=== PATIENT | female | born 1965 | race American Indian/Alaskan Native ===

== ENCOUNTER 2019-10-28 02:48 | Observation (INO) | payer OTHER ==
--- NOTE | 2019-10-28 03:26 | Cat Scan Report ---
Examination: CT of the head without contrast Clinical information: Stroke symptoms Comparison: No prior study is available for comparison. Technical: Multiple axial CT images of the head were obtained without intravenous contrast. Sagittal and coronal reformats were obtained. All CTs at this facility utilize dose reduction techniques inc luding automated exposure control, iterative reconstruction and weight based dosing when appropriate to reduce patient radiation dose to as low as reasonable achievable. Findings: There is no CT evidence of acute intracranial hemorrhage or large territorial infarct. The ventricular system is normal in size. There are no extra-axial fluid collections. Evaluation of the calvarium demonstrates no evidence of acute bony abnormality. The visualized parana david sinuses and mastoid air cells appear grossly clear. Impression: 1. No CT evidence of acute intracranial process. If there is persistent clinical concern for stroke, then MRI of the brain is recommended. This study was designated as a code stroke protocol. Study findings were personally communicated to Janet Shannon in the Emergency Department at 2:21 AM Central time. Signer Name: Sushma Melvin MD Signed: 10/28/2019 3:21 AM Workstation Name: [email or web address]
--- NOTE | 2019-10-28 03:28 | Consultation ---
History of Present Illness History of present illness: [facility] Date of Service: 10/28/2019 02:52:10 Impression: RO Acute Ischemic Stroke Comments: 1. Cardioembolic stroke 2. Small vessel disease/lacune 3. Thromboembolic, [id number] mechanism 4. Hypercoagulable state-related infarct 5. Thrombotic mechanism, large artery disease 6. Transient ischemic attack Metrics: Last Known Well: 10/28/2019 00:00:00 [facility] Notification Time: 10/28/2019 02:51:26 Arrival Time: 10/28/2019 02:48:00 Stamp Time: 10/28/2019 02:52:10 Time First Login Attempt: 10/28/2019 02:55:27 Video Start Time: 10/28/2019 02:55:27 Symptoms: speech difficulty and left leg pain NIHSS Start Assessment Time: 10/28/2019 03:12:21 ([address]) Patient is not a candidate for tPA. Patient was not deemed candidate for tPA thrombolytics because of IV TPA declined by the patient and her daugther. Video End Time: 10/28/2019 03:25:31 CT head was reviewed. Advanced imaging was not obtained as the presentation was not suggestive of Large Vessel Occlusive Disease. ER Physician notified of the decision on thrombolytics management on 10/28/2019 03:24:00 Our recommendations are outlined below. Recommendations: Activate Stroke Protocol Admission/Order Set Stroke/Telemetry Floor Neuro Checks Bedside Swallow Eval DVT Prophylaxis IV Fluids, Normal Saline Head of Bed Below 30 Degrees Euglycemia and Avoid Hyperthermia (PRN Acetaminophen) Initiate Aspirin 81 MG Daily Recommended Scan: MRI Head Without Contrast MRA Head Without Contrast Carotid Dopplers Echocardiogram - Transthoracic Echocardiogram Lipid Panel to Be Obtained, if Not Done in the Last Three Months Therapies: Physical Therapy, Occupational Therapy, Speech Therapy Assessment When Applicable Dysphaghia Screen: Swallow Evaluation, Bedside NPO Until Swallow Evaluation Disposition: Follow up with Teleneurology Follow up Sign Out: Discussed with Emergency Department Provider History of Present Illness: Patient is a 54 year old Female. Patient was brought by private transportation with symptoms of speech difficulty and left leg pain 54 y/o right handed woman with h/o DM, HTN who presents to the ED with speech difficulty and left leg pain. Emergent telestroke consult requested. CT head reviewed and case discussed with ED staff. Patient's daughter at the bedside. Last reported well 0000 midnight. I discussed the risk, benefits and alternatives to IV TPA with the patient and daughter at the bedside. They have declined IV TPA. ED attending at bedside. Patient appears mostly concerned with her left leg pain/cramps at this time. CT head was reviewed. Examination: BP(163/78), Blood Glucose(151) 1A: Level of Consciousness - Alert; keenly responsive + 0 1B: Ask Month and Age - Both Questions Right + 0 1C: Blink Eyes & Squeeze Hands - Performs Both Tasks + 0 2: Test Horizontal Extraocular Movements - Normal + 0 3: Test Visual Alvarado - No Visual Loss + 0 4: Test Facial Palsy (Use Grimace if Obtunded) - Normal symmetry + 0 5A: Test Left Arm Motor Drift - No Drift for 10 Seconds + 0 5B: Test Right Arm Motor Drift - No Drift for 10 Seconds + 0 6A: Test Left Leg Motor Drift - No Drift for 5 Seconds + 0 6B: Test Right Leg Motor Drift - No Drift for 5 Seconds + 0 7: Test Limb Ataxia (FNF/Heel-Bethea) - No Ataxia + 0 8: Test Sensation - Normal; No sensory loss + 0 9: Test Language/Aphasia - Normal; No aphasia + 0 10: Test Dysarthria - Mild-Moderate Dysarthria: Slurring but can be understood + 1 11: Test Extinction/Inattention - No abnormality + 0 NIHSS Score: 1 Patient was informed the Neurology Consult would happen via TeleHealth consult by way of interactive audio and video telecommunications and consented to receiving care in this manner. Due to the immediate potential for life-threatening deterioration due to underlying acute neurologic illness, I spent 35 minutes providing critical care. This time includes time for face to face visit via telemedicine, review of medical records, imaging studies and discussion of findings with providers, the patient and/or family. Dr Ramiro Matthews [facility] Case [id number] Medications and Allergies Allergies Allergy/AdvReac Type Severity Reaction Status Date / Time latex Allergy Hives Verified 10/28/19 03:04 Penicillins Allergy Hives Verified 10/28/19 03:04 shellfish derived Allergy Hives Verified 10/28/19 03:04 Sulfa (Sulfonamide Allergy Hives Verified 10/28/19 03:04 Antibiotics) nuts Allergy Hives Uncoded 10/28/19 03:04 Physical Examination - Vital Signs Vital Signs: Vital Signs Temp Pulse Resp BP Pulse Ox 97.3 F L 74 18 163/78 97 10/28/19 02:54 10/28/19 02:54 10/28/19 02:54 10/28/19 02:54 10/28/19 02:54 Results - Laboratory Findings Abnormal Lab Findings: Abnormal Labs 10/28/19 03:00 POC Glucose 151 H
--- NOTE | 2019-10-28 03:30 | Emergency Department Report ---
<BURKE ULLOA - Last Filed: 10/28/19 03:48> ED Neuro Deficit HPI - General Chief Complaint: Neuro Symptoms/Deficit Stated Complaint: UNABLE TO SPEAK, LEFT LEG PAIN, MUSCLE WEAKNESS Time Seen by Provider: 10/28/19 03:03 Source: patient Mode of arrival: Ambulatory Limitations: No Limitations - History of Present Illness Initial Comments: This is a 54-year-old female brought by daughter for slurred speech and muscle weakness/pain. Patient's daughter stated that around 12 AM prior to them going to sleep, patient was normal and when patient woke up to use the restroom she started to have slurred speech and weakness to bilateral legs, worse on the left side. Patient denies any history of stroke or CVA. Daughter stated that patient has history of similar symptoms (2017) but was never diagnosed with CVA. Denies any facial drooping. Patient denies any headache, fever, chills, nausea, vomiting, chest pain, shortness of breath. Past medical history includes diabetes and hypertension. -: This morning Location: speech, other (lower leg weakness) Presenting Symptoms: Present: Unable to Speak Clearly. Absent: Weak/Paralyzed One Side, Sudden, Severe Headache, Blurred/Loss of Vision, Facial Droop/Numbness, Altered Mental Status History of same: Yes (2017) Place: home Severity: mild Quality: weak Improves With: none Worsens With: none On Anticoagulants: No Context: sudden onset Associated Symptoms: weakness. denies: confusion, chest pain, cough, diaphoresis, fever/chills, headaches, loss of appetite, malise, nausea/vomiting, vertigo, seizures, shortness of breath, syncope Treatments Prior to Arrival: none - Related Data Allergies/Adverse Reactions: Allergies Allergy/AdvReac Type Severity Reaction Status Date / Time latex Allergy Hives Verified 10/28/19 03:04 Penicillins Allergy Hives Verified 10/28/19 03:04 shellfish derived Allergy Hives Verified 10/28/19 03:04 Sulfa (Sulfonamide Allergy Hives Verified 10/28/19 03:04 Antibiotics) nuts Allergy Hives Uncoded 10/28/19 03:04 ED Review of Systems Constitutional: denies: chills, fever Eyes: denies: eye pain, eye discharge, vision change ENT: denies: ear pain, throat pain Respiratory: denies: cough, shortness of breath, wheezing Cardiovascular: denies: chest pain, palpitations Endocrine: no symptoms reported Gastrointestinal: denies: abdominal pain, nausea, diarrhea Genitourinary: denies: urgency, dysuria, discharge Musculoskeletal: denies: back pain, joint swelling, arthralgia Skin: denies: rash, lesions Neurological: weakness, other (slurred speech). denies: headache, paresthesias Psychiatric: denies: anxiety, depression Hematological/Lymphatic: denies: easy bleeding, easy bruising ED Past Medical Hx - Past Medical History Previous Medical History?: Yes Hx Hypertension: Yes Hx Diabetes: Yes Additional medical history: high cholesterol, glaucoma,sleep apnea, herpes 2, Asthma - Surgical History Past Surgical History?: Yes Additional Surgical History: hip - Social History Smoking Status: Never Smoker Substance Use Type: None ED Neuro Physical Exam - General Limitations: No Limitations General appearance: alert, in no apparent distress Suspected Stroke: Yes - Head Head exam: Present: atraumatic, normocephalic - Eye Eye exam: Present: normal appearance, PERRL, EOMI - Neck Neck exam: Present: normal inspection, full ROM. Absent: tenderness, meningismus - Respiratory Respiratory exam: Present: normal lung sounds bilaterally. Absent: respiratory distress, wheezes, rales, rhonchi, stridor, chest wall tenderness, accessory muscle use, decreased breath sounds, prolonged expiratory - Cardiovascular Cardiovascular Exam: Present: regular rate, normal rhythm - GI/Abdominal GI/Abdominal exam: Present: soft, normal bowel sounds. Absent: distended, tenderness, guarding, rebound, rigid, diminished bowel sounds - Extremities Exam Extremities exam: Present: normal inspection, full ROM, normal capillary refill. Absent: tenderness - Back Exam Back exam: Present: normal inspection, full ROM. Absent: tenderness, CVA tenderness (R), CVA tenderness (L), muscle spasm, paraspinal tenderness, vertebral tenderness, rash noted - Neurological Exam Neurological exam: Present: alert, oriented X3 - NIHSS Assessment Interval: Baseline 1a. Level of Consciousness: alert/keenly responsive 1b. LOC Questions: answers both correctly 1c. LOC Commands: performs tasks correctly 2. Best Gaze: normal 3. Visual: no visual loss 4. Facial Palsy: normal symmetrical movement 5b. Motor Arm Right: no drift 5a. Motor Arm Left: no drift 6a. Motor Leg Left: no drift 6b. Motor Leg Right: no drift 7. Limb Ataxia: absent 8. Sensory: normal 9. Best Language: mild/moderate aphasia 10. Dysarthria: normal 11. Extinction/Inattention: no abnormality Total Score: 1 Stroke Severity: Minor Stroke - Psychiatric Psychiatric exam: Present: normal affect, normal mood - Skin Skin exam: Present: warm, dry, intact, normal color. Absent: rash ED Course - Reevaluation(s) Reevaluation #1: 10/28/19 03:31 Patient signed out to Dr. Shannon for further evaluation and treatment. - Medical Decision Making This is a 54-year-old female that presents with possible stroke. Patient does not present with one-sided weakness but does have a slurred speech. Neurologist and patient both agreed with no TPA at this time. Patient is placed on a color television console monitor. Labs pending. CT of head pending. Patient signed out to Dr. Shannon for further evaluation and treatment. ED Disposition Clinical Impression: Slurred speech, HTN (hypertension), Diabetes Disposition: OP ADMIT IP TO THIS HOSP Condition: Stable <KAL SHANNON - Last Filed: 10/28/19 04:56> ED Review of Systems ROS: Stated complaint: UNABLE TO SPEAK, LEFT LEG PAIN, MUSCLE WEAKNESS Other details as noted in HPI ED Course Vital Signs 10/28/19 10/28/19 10/28/19 02:54 03:18 03:30 Temperature 97.3 F L Pulse Rate 74 74 73 Respiratory 18 13 20 Rate Blood Pressure 163/78 175/81 Blood Pressure [Right] O2 Sat by Pulse 97 99 97 Oximetry 10/28/19 10/28/19 10/28/19 03:33 03:45 04:00 Temperature 97.7 F Pulse Rate 75 67 73 Respiratory 22 13 15 Rate Blood Pressure 161/80 159/75 Blood Pressure 175/81 [Right] O2 Sat by Pulse 98 96 Oximetry 10/28/19 04:15 Temperature Pulse Rate 69 Respiratory 14 Rate Blood Pressure 134/71 Blood Pressure [Right] O2 Sat by Pulse 91 Oximetry - Lab Data Result diagrams: 10/28/19 03:34 10/28/19 03:34 Lab Results 10/28/19 10/28/19 10/28/19 Range/Units 03:00 03:34 03:34 WBC 10.6 (4.5-11.0) K/mm3 RBC 5.38 H (3.65-5.03) M/mm3 Hgb 14.0 (10.1-14.3) gm/dl Hct 43.2 H (30.3-42.9) % MCV 80 (79-97) fl MCH 26 L (28-32) pg MCHC 33 (30-34) % RDW 14.8 (13.2-15.2) % Plt Count 307 (140-440) K/mm3 Lymph % (Auto) 25.3 (13.4-35.0) % Dare % (Auto) 12.9 H (0.0-7.3) % Eos % (Auto) 1.6 (0.0-4.3) % Baso % (Auto) 0.3 (0.0-1.8) % Lymph # 2.7 (1.2-5.4) K/mm3 Dare # 1.4 H (0.0-0.8) K/mm3 Eos # 0.2 (0.0-0.4) K/mm3 Baso # 0.0 (0.0-0.1) K/mm3 Seg Neutrophils % 59.9 (40.0-70.0) % Seg Neutrophils # 6.3 (1.8-7.7) K/mm3 PT 12.8 (12.2-14.9) Sec. INR 0.97 (0.87-1.13) APTT 25.3 (24.2-36.6) Sec. Thrombin Time 18.4 (15.1-19.6) Sec. Sodium (137-145) mmol/L Potassium (3.6-5.0) mmol/L Chloride (98-107) mmol/L Carbon Dioxide (22-30) mmol/L Anion Gap mmol/L BUN (7-17) mg/dL Creatinine (0.7-1.2) mg/dL Estimated GFR ml/min BUN/Creatinine Ratio % Glucose (65-100) mg/dL POC Glucose 151 H (70-105) Calcium (8.4-10.2) mg/dL Total Bilirubin (0.1-1.2) mg/dL AST (5-40) units/L ALT (7-56) units/L Alkaline Phosphatase (35-129) units/L Total Creatine Kinase (30-135) units/L CK-MB (CK-2) (0.0-4.0) ng/mL CK-MB (CK-2) Rel Index (0-4) Troponin T (0.00-0.029) ng/mL Total Protein (6.3-8.2) g/dL Albumin (3.9-5) g/dL Albumin/Globulin Ratio % Plasma/Serum Alcohol (0-0.07) % 10/28/19 10/28/19 10/28/19 Range/Units 03:34 03:34 03:34 WBC (4.5-11.0) K/mm3 RBC (3.65-5.03) M/mm3 Hgb (10.1-14.3) gm/dl Hct (30.3-42.9) % MCV (79-97) fl MCH (28-32) pg MCHC (30-34) % RDW (13.2-15.2) % Plt Count (140-440) K/mm3 Lymph % (Auto) (13.4-35.0) % Dare % (Auto) (0.0-7.3) % Eos % (Auto) (0.0-4.3) % Baso % (Auto) (0.0-1.8) % Lymph # (1.2-5.4) K/mm3 Dare # (0.0-0.8) K/mm3 Eos # (0.0-0.4) K/mm3 Baso # (0.0-0.1) K/mm3 Seg Neutrophils % (40.0-70.0) % Seg Neutrophils # (1.8-7.7) K/mm3 PT (12.2-14.9) Sec. INR (0.87-1.13) APTT (24.2-36.6) Sec. Thrombin Time (15.1-19.6) Sec. Sodium 139 (137-145) mmol/L Potassium 3.8 (3.6-5.0) mmol/L Chloride 102.8 (98-107) mmol/L Carbon Dioxide 25 (22-30) mmol/L Anion Gap 15 mmol/L BUN 19 H (7-17) mg/dL Creatinine 0.6 L (0.7-1.2) mg/dL Estimated GFR > 60 ml/min BUN/Creatinine Ratio 32 % Glucose 150 H (65-100) mg/dL POC Glucose (70-105) Calcium 10.0 (8.4-10.2) mg/dL Total Bilirubin 0.70 (0.1-1.2) mg/dL AST 17 (5-40) units/L ALT 16 (7-56) units/L Alkaline Phosphatase 139 H (35-129) units/L Total Creatine Kinase 207 H 213 H (30-135) units/L CK-MB (CK-2) 2.6 (0.0-4.0) ng/mL CK-MB (CK-2) Rel Index 1.2 (0-4) Troponin T < 0.010 (0.00-0.029) ng/mL Total Protein 8.3 H (6.3-8.2) g/dL Albumin 4.1 (3.9-5) g/dL Albumin/Globulin Ratio 1.0 % Plasma/Serum Alcohol < 0.01 (0-0.07) % - Radiology Data Radiology results: report reviewed Examination: CT of the head without contrast Clinical information: Stroke symptoms Comparison: No prior study is available for comparison. Technical: Multiple axial CT images of the head were obtained without intravenous contrast. Sagittal and coronal reformats were obtained. All CTs at this facility utilize dose reduction techniques including automated exposure control, iterative reconstruction and weight based dosing when appropriate to reduce patient radiation dose to as low as reasonable achievable. Findings: There is no CT evidence of acute intracranial hemorrhage or large territorial infarct. The ventricular system is normal in size. There are no extra-axial fluid collections. Evaluation of the calvarium demonstrates no evidence of acute bony abnormality. The visualized paranasal sinuses and mastoid air cells appear grossly clear. Impression: 1. No CT evidence of acute intracranial process. If there is persistent clinical concern for stroke, then MRI of the brain is recommended. - Thrombolytic Inclusion/Exclusion Thrombolytic Inclusion Criteria: NIH Stroke Scale Deficit Critical Care Time: No Critical care attestation.: If time is entered above; I have spent that time in minutes in the direct care of this critically ill patient, excluding procedure time. ED Disposition Is pt being admited?: Yes Does the pt Need Aspirin: Yes Time of Disposition: 04:55 (Dr Reyes/hosp)
[2019-10-28 03:54] LABS: Basophils % (Auto) 0.3 % (0.0-1.8); Eosinophils # (Auto) 0.2 K/mm3 (0.0-0.4); Eosinophils % (Auto) 1.6 % (0.0-4.3); Hematocrit 43.2 % (30.3-42.9); Lymphocytes # (Auto) 2.7 K/mm3 (1.2-5.4); Lymphocytes % (Auto) 25.3 % (13.4-35.0); Mean Corpuscular HGB Conc 33 % (30-34); Mean Corpuscular Volume 80 fl (79-97); Monocytes # (Auto) 1.4 K/mm3 (0.0-0.8); Monocytes % (Auto) 12.9 % (0.0-7.3); Platelet Count 307 K/mm3 (140-440); Red Blood Count 5.38 M/mm3 (3.65-5.03); Red Cell Distribution Width 14.8 % (13.2-15.2)
[2019-10-28] MEDS ORDERED: ONDANSETRON 4 MG/2 ML INJ IV ONE (04:00)
[2019-10-28] MEDS ORDERED: MORPHINE 4 MG/1 ML INJ IV ONE (04:00)
[2019-10-28] MEDS ORDERED: ASPIRIN 325 MG TAB ONE (04:01)
[2019-10-28] MEDS ORDERED: ONDANSETRON 4 MG/2 ML INJ ONE (04:01)
[2019-10-28] MEDS ORDERED: MORPHINE 4 MG/1 ML INJ ONE (04:01)
[2019-10-28] MEDS ORDERED: ASPIRIN 325 MG TAB PO ONE (04:02)
[2019-10-28 04:08] LABS: INR 0.97 (0.87-1.13)
[2019-10-28 04:09] LABS: Partial Thromboplastin Time 25.3 Sec. (24.2-36.6); Thrombin Time 18.4 Sec. (15.1-19.6)
[2019-10-28 04:10] LABS: Creatine Kinase MB 2.6 ng/mL (0.0-4.0)
[2019-10-28 04:12] LABS: Alanine Aminotransferase 16 units/L (7-56); Albumin 4.1 g/dL (3.9-5); BUN/Creatinine Ratio 32; Blood Urea Nitrogen 19 mg/dL (7-17); Hemolysis Index 0
[2019-10-28 05:31] LABS: Bacteria,Urine 1+ /HPF (Negative); Bilirubin,Urine NEG (Negative); Blood,Urine NEG (Negative); Color,Urine Yellow (Yellow); Mucus,Urine 2+ /HPF; Urobilinogen,Urine < 2.0 mg/dL (<2.0)
[2019-10-28 05:38] LABS: Amphetamine Screen,Urine PRESUMPTIVE NEGATIVE; Benzodiazepines Screen,Urine PRESUMPTIVE NEGATIVE; Cannabinoid Screen,Urine PRESUMPTIVE NEGATIVE; Cocaine Screen,Urine PRESUMPTIVE NEGATIVE; Methadone Screen,Urine PRESUMPTIVE NEGATIVE
[2019-10-28] MEDS ORDERED: MAGNESIUM HYDROXIDE (MOM) ORAL LIQD UDC PO PRN (05:40)
[2019-10-28] MEDS ORDERED: ONDANSETRON 4 MG/2 ML INJ IV PRN (05:40)
[2019-10-28] MEDS ORDERED: ACETAMINOPHEN 325 MG TAB PO PRN (05:40)
--- NOTE | 2019-10-28 05:59 | History and Physical Report ---
History of Present Illness Date of examination: 10/28/19 History of present illness: 54 -year-old woman with a history of hypertension, diabetes, hyperlipidemia, glaucoma, comes to the room because around 1:00 am she started having left- sided weakness and difficulty speaking. She was evaluated by neurologist in the emergency room, not a candidate for TPA review Of Systems: Constitutional: no weight loss, fever, chills Ears, eyes, nose, mouth and throat: no nasal congestion, no nasal discharge, no sinus pressure, blurry vision, diplopia Neck: No neck pain or rigidity. Cardiovascular: No palpitations Respiratory: No cough, shortness of breath Gastrointestinal: No hematochezia, abdominal pain Genitourinary : no dysuria, frequency , hematuria Musculoskeletal: no muscle ache , joint pain Integumentary: no rash, no pruritis Neurological: no parathesias, focal weakness Endocrine: no cold or heat intolerance, no polyuria or polydipsia Hematologic/Lymphatic: no easy bruising, no easy bleeding, no gland swelling Allergic/Immunologic: no urticaria, no angioedema. PAST MEDICAL HISTORY hypertension, diabetes, hyperlipidemia, glaucoma PAST SURGICAL HISTORY: hip SOCIAL HISTORY: No drugs, tobacco, alcohol FAMILY HISTORY: Hypertension Medications and Allergies Allergies Allergy/AdvReac Type Severity Reaction Status Date / Time latex Allergy Hives Verified 10/28/19 03:04 Penicillins Allergy Hives Verified 10/28/19 03:04 shellfish derived Allergy Hives Verified 10/28/19 03:04 Sulfa (Sulfonamide Allergy Hives Verified 10/28/19 03:04 Antibiotics) nuts Allergy Hives Uncoded 10/28/19 03:04 Home Medications Medication Instructions Recorded Confirmed Last Taken Type Amlodipine Besylate [Norvasc] 1 tab PO DAILY 10/28/19 10/28/19 Unknown History Diclofenac [Bob Kerr] 1 tab PO BID PRN 10/28/19 10/28/19 Unknown History Dulaglutide [Trulicity] 1 dose SQ 1XW 10/28/19 10/28/19 Unknown History HYDROcodone/APAP 5-325 1 tab PO Q6HR PRN 10/28/19 10/28/19 Unknown History Insulin Glargine,Hum.rec.anlog 75 units SQ DAILY 10/28/19 10/28/19 Unknown History [Basaglar Kwikpen U-100] Insulin Lispro [Humalog 100 40 units SQ DAILY 10/28/19 10/28/19 Unknown History UNITS/ML Kwikpen] Latanoprost 0.005% 1 drop OU HS 10/28/19 10/28/19 Unknown History Meloxicam [Mobic] 15 mg PO DAILY 10/28/19 10/28/19 Unknown History Ondansetron [Zofran ODT TAB] 1 tab PO DAILY PRN 10/28/19 10/28/19 Unknown History Aspirin [Adult Aspirin] 81 mg PO DAILY #30 tablet. 10/29/19 Unknown Rx Rosuvastatin Calcium [Crestor] 20 mg PO QHS #30 tablet 10/29/19 Unknown Rx Active Meds: Active Medications Acetaminophen (Tylenol) 650 mg PO Q4H PRN PRN Reason: Pain, Mild (1-3) Aspirin (Aspirin) 325 mg PO QDAY MAYA Atorvastatin Calcium (Lipitor) 40 mg PO QHS MAYA Bisacodyl (Dulcolax) 10 mg AR QDAY PRN PRN Reason: Constipation Enoxaparin Sodium (Enoxaparin) 40 mg SUB-Q QDAY@1000 MAYA Magnesium Hydroxide (Milk Of Magnesia) 30 ml PO Q4H PRN PRN Reason: Constipation Ondansetron HCl (Zofran) 4 mg IV Q8H PRN PRN Reason: Nausea And Vomiting Sodium Chloride (Sodium Chloride Flush Syringe 10 Ml) 10 ml IV PRN PRN PRN Reason: LINE FLUSH Exam - Physical Exam Narrative exam: Gen. appearance: Patient lying in bed, no apparent distress HEENT: Normocephalic, atraumatic, pupils equally round and reactive to light, extraocular movement intact, and no sclericterus,. No JVD or thyromegaly or nodule,neck supple, no carotid bruit ,mucous membranes moist, no exudate or erythema Heart: S1, S2, regular rate and rhythm Lungs: Clear bilaterally, breathing comfortable Abdomen: Positive bowel sounds, non-tender, nondistended, no organomegaly Extremity:no edema cyanosis, clubbing Skin: no rash, dry, warm Neuro: Oriented 3, cranial nerves II-12 intact, dysarthria, left lower extremity 4/5 otherwise normal, and sensory intact - Constitutional Vitals: Temp Pulse Resp BP Pulse Ox 97.7 F 67 11 L 149/70 97 10/28/19 03:33 10/28/19 05:16 10/28/19 05:16 10/28/19 05:16 10/28/19 05:16 Results - Labs CBC & Chem 7: 10/28/19 03:34 10/28/19 03:34 Labs: Abnormal lab results 10/28/19 10/28/19 10/28/19 Range/Units 03:00 03:34 03:34 RBC 5.38 H (3.65-5.03) M/mm3 Hct 43.2 H (30.3-42.9) % MCH 26 L (28-32) pg Mcleod % (Auto) 12.9 H (0.0-7.3) % Mcleod # 1.4 H (0.0-0.8) K/mm3 BUN 19 H (7-17) mg/dL Creatinine 0.6 L (0.7-1.2) mg/dL Glucose 150 H (65-100) mg/dL POC Glucose 151 H (70-105) Alkaline Phosphatase 139 H (35-129) units/L Total Creatine Kinase 207 H (30-135) units/L Total Protein 8.3 H (6.3-8.2) g/dL Urine WBC (Auto) (0.0-6.0) /HPF U Epithel Cells (Auto) (0-13.0) /HPF 10/28/19 10/28/19 Range/Units 03:34 05:18 RBC (3.65-5.03) M/mm3 Hct (30.3-42.9) % MCH (28-32) pg Mcleod % (Auto) (0.0-7.3) % Mcleod # (0.0-0.8) K/mm3 BUN (7-17) mg/dL Creatinine (0.7-1.2) mg/dL Glucose (65-100) mg/dL POC Glucose (70-105) Alkaline Phosphatase (35-129) units/L Total Creatine Kinase 213 H (30-135) units/L Total Protein (6.3-8.2) g/dL Urine WBC (Auto) 7.0 H (0.0-6.0) /HPF U Epithel Cells (Auto) 20.0 H (0-13.0) /HPF - Imaging and Cardiology CT Scan - head: report reviewed Assessment and Plan Assessment CVA, acute hypertension diabetes hyperlipidemia, glaucoma Plan Admit to medicine Obtain MRI of the head and carotid Doppler, echo Start aspirin, statin IV hydralazine as needed for blood pressure control Consult neurology, physical and occupational, speech therapy DVT prophylaxis
[2019-10-28 06:05] LABS: Opiate Screen,Urine PRESUMPTIVE POSITIVE
--- NOTE | 2019-10-28 09:16 | Vascular Lab Report ---
Bilateral Carotid Doppler Ultrasound INDICATION : stroke, slurred speech and left leg weakness TECHNIQUE: Grayscale and color Doppler imaging performed through the neck. COMPARISON: None FINDINGS: Right: There is no significant atherosclerotic disease. Peak systolic velocity in the CCA is 113 cm /s with end-diastolic velocity of 27 cm/s. Peak systolic velocity in the proximal ICA is 85 cm/s with end-diastolic velocity of 20 cm/s. ICA to CCA ratio is less than 2. There is antegrade flow in the ECA and the vertebral artery. Left: There is no significant atherosclerotic disease. Peak systolic velocity in the CCA is 107 cm/s with end-diastolic velocity of 22 cm/s. Peak systolic velocity in the proximal ICA is 117 cm/s with e nd-diastolic velocity of 26 cm/s. ICA to CCA ratio is less than 2. There is antegrade flow in the EC A and the vertebral artery. IMPRESSION: No hemodynamically significant stenosis by NASCET criteria. Signer Name: Sandeep Montano MD Signed: 10/28/2019 9:11 AM Workstation Name: [id number]
[2019-10-28] MEDS ORDERED: ASPIRIN 325 MG TAB PO SCH (10:00)
[2019-10-28] MEDS ORDERED: ENOXAPARIN 30 MG/0.3 ML INJ SUB-Q SCH (10:00)
[2019-10-28] MEDS: ENOXAPARIN 40 MG/0.4 ML INJ SUB-Q SCH (11:16)
--- NOTE | 2019-10-28 12:36 | Event Note ---
Date: 10/28/19 pateint seen and examined, reports recurrent passing out while in the bathroom, has sustained fracture in the hands over the years from this. she states she had work up done but not sure what type and the outcome. This time had right leg pain and spam then became aphasic continue current work up await MRI
--- NOTE | 2019-10-28 16:42 | Consultation ---
History of Present Illness Consult date: 10/28/19 Reason for Consult: Possible stroke Chief complaint: Slurred speech, leg weakness History of present illness: Patient is a 54 y/o woman w/ a h/o HTN, HLD, DM, FALLON, asthma, glaucoma. Last night at about 1am, patient awoke, and noted symptoms of LLE weakness/numbness, as well as slurred speech. Patient had gone to sleep about one hour prior to waking up. She was brought to [facility] for evaluation. Patient reportedly declined tPA. Slurred speech improved 7 hours after onset, however she still c/o LLE weakness/nuumbness. She also has h/o previous episodes of LOC, which usuall occur at night, when she wakes up to go to the bathroom. None of these events have been witnessed, and she does not report loss of bowel/bladder control or tongue biting with these episodes. She states that last night, she noted "spasms" in LE b/l. She also states she had a similar episode of slurred speech in 2014, however is uncertain if she was diagnosed with a stroke at the time. Past History Past Medical History: other ( HTN, HLD, DM, FALLON, asthma, glaucoma) Social history: no significant social history Family history: no significant family history Medications and Allergies Allergies Allergy/AdvReac Type Severity Reaction Status Date / Time latex Allergy Hives Verified 10/28/19 03:04 Penicillins Allergy Hives Verified 10/28/19 03:04 shellfish derived Allergy Hives Verified 10/28/19 03:04 Sulfa (Sulfonamide Allergy Hives Verified 10/28/19 03:04 Antibiotics) nuts Allergy Hives Uncoded 10/28/19 03:04 Home Medications Medication Instructions Recorded Confirmed Last Taken Type Amlodipine Besylate [Norvasc] 1 tab PO DAILY 10/28/19 10/28/19 Unknown History Diclofenac [Bob Kerr] 1 tab PO BID PRN 10/28/19 10/28/19 Unknown History Dulaglutide [Trulicity] 1 dose SQ 1XW 10/28/19 10/28/19 Unknown History HYDROcodone/APAP 5-325 1 tab PO Q6HR PRN 10/28/19 10/28/19 Unknown History Insulin Glargine,Hum.rec.anlog 75 units SQ DAILY 10/28/19 10/28/19 Unknown History [Basaglar Kwikpen U-100] Insulin Lispro [Humalog 100 40 units SQ DAILY 10/28/19 10/28/19 Unknown History UNITS/ML Kwikpen] Latanoprost 0.005% 1 drop OU HS 10/28/19 10/28/19 Unknown History Meloxicam [Mobic] 15 mg PO DAILY 10/28/19 10/28/19 Unknown History Ondansetron [Zofran ODT TAB] 1 tab PO DAILY PRN 10/28/19 10/28/19 Unknown History Rosuvastatin Calcium [Crestor] 10 mg PO HS 10/28/19 10/28/19 Unknown History Active Meds: Active Medications Acetaminophen (Tylenol) 650 mg PO Q4H PRN PRN Reason: Pain, Mild (1-3) Aspirin (Aspirin) 325 mg PO QDAY MAYA Atorvastatin Calcium (Lipitor) 40 mg PO QHS MAYA Bisacodyl (Dulcolax) 10 mg ME QDAY PRN PRN Reason: Constipation Enoxaparin Sodium (Enoxaparin) 40 mg SUB-Q QDAY@1000 MAYA Last Admin: 10/28/19 11:16 Dose: 40 mg Documented by: Magnesium Hydroxide (Milk Of Magnesia) 30 ml PO Q4H PRN PRN Reason: Constipation Ondansetron HCl (Zofran) 4 mg IV Q8H PRN PRN Reason: Nausea And Vomiting Sodium Chloride (Sodium Chloride Flush Syringe 10 Ml) 10 ml IV PRN PRN PRN Reason: LINE FLUSH Review of Systems All systems: negative Neurological: weakness, numbness, change in speech Physical Examination - Vital Signs Vital Signs: Vital Signs Temp Pulse Resp BP Pulse Ox 97.3 F L 74 18 163/78 97 10/28/19 02:54 10/28/19 02:54 10/28/19 02:54 10/28/19 02:54 10/28/19 02:54 - Physical Exam Narrative exam: Patient is alert, awake, oriented x4. Follows complex commands. PERRL, EOMI, VFF, no facial weakness noted, tongue midline, b/l intact LT. 5/5 strength RUE /RLE/LUE, 3/5 in LLE. Decreased in LLE to LT. Intact to FTN and HTS b/l. 2+ reflexes throughout. No dysarthria noted. No aphasia noted. - Constitutional General appearance: comfortable - EENT EENT: Present: ATNC, PERRL, mucous membranes moist, hearing intact, vision intact - Respiratory Respiratory: Present: lungs clear, normal breath sounds - Cardiovascular Cardiovascular: Present: regular rate, normal S1, normal S2 Extremities: Present: no clubbing, cyanosis, no inflammation - Gastrointestinal Gastrointestinal: Present: normoactive bowel sounds, soft, non-tender - Integumentary Integumentary: Present: normal - Musculoskeletal Musculoskeletal: Present: no fluid collection, no pain - Psychiatric Psychiatric: Present: mood/affect appropriate - Level of Consciousness 1a. Level of Consciousness: alert/keenly responsive - LOC Questions 1b. LOC Questions: answers both correctly - LOC Command 1c. LOC Commands: performs tasks correctly - Best Gaze 2. Best Gaze: normal - Visual 3. Visual: no visual loss - Facial Palsy 4. Facial Palsy: normal symmetrical movement - Motor Arm 5a. Motor Arm Left: no drift 5b. Motor Arm Right: no drift - Motor Leg 6a. Motor Leg Left: drift 6b. Motor Leg Right: no drift - Limb Ataxia 7. Limb Ataxia: absent - Sensory 8. Sensory: mild/moderate sensory loss - Best Language 9. Best Language: no aphasia - Dysarthria 10. Dysarthria: normal - Extinction and Inattention 11. Extinction/Inattention: no abnormality - Scoring Total Score: 2 Stroke Severity: Minor Stroke Results - Laboratory Findings CBC and BMP: 10/28/19 03:34 10/28/19 03:34 Abnormal Lab Findings: Abnormal Labs 10/28/19 10/28/19 10/28/19 03:00 03:34 03:34 RBC 5.38 H Hct 43.2 H MCH 26 L [place] % (Auto) 12.9 H [place] # 1.4 H BUN 19 H Creatinine 0.6 L Glucose 150 H POC Glucose 151 H Alkaline Phosphatase 139 H Total Creatine Kinase 207 H Total Protein 8.3 H Urine WBC (Auto) U Epithel Cells (Auto) 10/28/19 10/28/19 10/28/19 03:34 05:18 12:15 RBC Hct MCH [place] % (Auto) [place] # BUN Creatinine Glucose POC Glucose 140 H Alkaline Phosphatase Total Creatine Kinase 213 H Total Protein Urine WBC (Auto) 7.0 H U Epithel Cells (Auto) 20.0 H Assessment and Plan Patient is a 54 y/o woman w/ a h/o HTN, HLD, DM, FALLON, asthma, glaucoma, who p/w slurred speech and LLE weakness/numbness. According to the patient's clinical findings, it is likely that she has had an acute ischemic stroke vs TIA. Plan: 1. Stroke: - Check MRI - CT head unremarkable - CUS: no signficant stenosis - Check MRA head/neck - Cont. ASA - Cont. statin. LDL pending - Telemetry monitoring while in house. - PT/OT/ST - DVT Ppx: recommend lovenox - Check orthostatic VS, as patient c/o previous episodes of LOC when waking up to go to bathroom at night. 2. Hypertension: - Recommend BP goal of <220/120, to allow for permissive hypertension. Can target normotension on 10/30/19. -Will continue to monitor patient. Thank you for allowing me to take part in the care of this patient. Harlan Henriquez MD Neurology
[2019-10-28] MEDS: INSULIN LISPRO 100 UNIT/ML SUB-Q SCH (22:22)
[2019-10-29 07:38] LABS: Chol/HDL Ratio 4.61 %
[2019-10-29] MEDS: INSULIN LISPRO 100 UNIT/ML SUB-Q SCH ×3 (08:47→17:07)
[2019-10-29] MEDS ORDERED: ASPIRIN 325 MG TAB PO SCH (10:00)
[2019-10-29] MEDS ORDERED: INSULIN GLARGINE HUM REC ANLOG 75 UNIT SQ SCH (10:00)
[2019-10-29] MEDS: ENOXAPARIN 40 MG/0.4 ML INJ SUB-Q SCH (11:00)
--- NOTE | 2019-10-29 11:23 | Progress Note ---
Assessment and Plan Patient is a 54 y/o woman w/ a h/o HTN, HLD, DM, FALLON, asthma, glaucoma, who p/w slurred speech and LLE weakness/numbness. According to the patient's clinical findings, it is likely that she has had an acute ischemic stroke vs TIA. Plan: 1. Stroke: - Check MRI- pending - CT head unremarkable - CUS: no signficant stenosis - Check MRA head/neck - Pending - Cont. ASA - Cont. statin. LDL 102 - Telemetry monitoring while in house. - PT/OT/ST - DVT Ppx: recommend lovenox - Check orthostatic VS, as patient c/o previous episodes of LOC when waking up to go to bathroom at night. 2. Hypertension: - Recommend BP goal of <220/120, to allow for permissive hypertension. Can target normotension on 10/30/19. -- Will sign off, as I am not covering neurology service over the weekend. Please consult neurologist covering weekend for further neurologic management and monitoring. Thank you for allowing me to take part in the care of this patient. Harlan Henriquez MD Neurology Subjective Date of service: 10/29/19 Principal diagnosis: Stroke Interval history: No acute events overnight. Objective - Exam Narrative Exam: Patient is alert, awake, oriented x4. Follows complex commands. PERRL, EOMI, VFF, no facial weakness noted, tongue midline, b/l intact LT. 5/5 strength RUE/RLE/LUE, 3/5 in LLE. Decreased in LLE to LT. Intact to FTN and HTS b/l. 2+ reflexes throughout. No dysarthria noted. No aphasia noted. - Vital Sign Vital Signs - 12hr 10/29/19 10/29/19 10/29/19 00:06 03:46 08:04 Temperature 97.8 F 98.2 F Pulse Rate 73 81 71 Respiratory 16 20 Rate Blood Pressure 139/52 127/64 134/46 O2 Sat by Pulse 95 94 95 Oximetry - General Apperance Constitutional: comfortable - EENT EENT: ATNC, PERRL, mucous membranes moist, hearing intact, vision intact - Respiratory Respiratory: lungs clear, normal breath sounds - Cardiovascular Cardiovascular: regular rate, normal S1, normal S2 Extremities: no clubbing, cyanosis, no inflammation - Gastrointestinal Gastrointestinal: normoactive bowel sounds, soft, non-tender - Integumentary Integumentary: normal - Musculoskeletal Musculoskeletal: no fluid collection, no pain - Psychiatric Psychiatric: mood/affect appropriate - Laboratory Findings CBC and BMP: 10/28/19 03:34 10/28/19 03:34 Abnormal Lab Findings: Abnormal Labs 10/28/19 10/28/19 10/28/19 03:00 03:34 03:34 RBC 5.38 H Hct 43.2 H MCH 26 L [place] % (Auto) 12.9 H [place] # 1.4 H BUN 19 H Creatinine 0.6 L Glucose 150 H POC Glucose 151 H Alkaline Phosphatase 139 H Total Creatine Kinase 207 H Total Protein 8.3 H HDL Cholesterol Urine WBC (Auto) U Epithel Cells (Auto) 10/28/19 10/28/19 10/28/19 03:34 05:18 12:15 RBC Hct MCH [place] % (Auto) [place] # BUN Creatinine Glucose POC Glucose 140 H Alkaline Phosphatase Total Creatine Kinase 213 H Total Protein HDL Cholesterol Urine WBC (Auto) 7.0 H U Epithel Cells (Auto) 20.0 H 10/28/19 10/28/19 10/29/19 17:02 20:26 06:34 RBC Hct MCH [place] % (Auto) [place] # BUN Creatinine Glucose POC Glucose 228 H 362 H Alkaline Phosphatase Total Creatine Kinase Total Protein HDL Cholesterol 34 L Urine WBC (Auto) U Epithel Cells (Auto) 10/29/19 08:15 RBC Hct MCH [place] % (Auto) [place] # BUN Creatinine Glucose POC Glucose 301 H Alkaline Phosphatase Total Creatine Kinase Total Protein HDL Cholesterol Urine WBC (Auto) U Epithel Cells (Auto)
[2019-10-29] MEDS ORDERED: FLU VACC QUAD 2019-20 (3 YR UP)/PF 60 MCG/0.5 ML SYRINGE IM ONE (12:00)
--- NOTE | 2019-10-29 12:57 | Magnetic Resonance Report ---
MRI BRAIN WITHOUT CONTRAST INDICATION / CLINICAL INFORMATION: stroke. TECHNIQUE: Multiplanar, multisequence MR images of the brain were obtained. COMPARISON: None available. FINDINGS: BRAIN / INTRACRANIAL CONTENTS: The motion degrades the image quality despite using a fast acquisition sequences. However, the brain appears to demonstrate appropriate signal characteristics for age. The diffusion weighted imaging reveals no clear evidence of acute territorial infarct. The ventricular s ystem is appropriate in size and configuration. No extra-axial fluid collections or significant mass effect is identified. CRANIOCERVICAL JUNCTION: No significant abnormality. VASCULAR FLOW-VOIDS: No significant abnormality. ORBITS: No significant abnormality of visualized orbits. SINUSES / MASTOIDS: No significant abnormality of the visualized paranasal sinuses or mastoid air trevor ls. ADDITIONAL FINDINGS: There is prominence of the nasopharyngeal soft tissues which is atypical for a p atient this age though may reflect lymphoid hypertrophy; correlation would be needed. IMPRESSION: 1. There is no MRI evidence of acute infarction or intracranial process. 2. There is prominence of the nasopharyngeal soft tissues as described. Signer Name: Charles Bowen MD Signed: 10/29/2019 12:53 PM Workstation Name: [id number]
[2019-10-29 13:24] VITALS: BP 177/79
--- NOTE | 2019-10-29 13:37 | Magnetic Resonance Report ---
MR MRA/MRV head wo con INDICATION / CLINICAL INFORMATION: 54 years Female; stroke. TECHNIQUE: 3-D time of flight. NASCET type criteria used to evaluate stenoses. COMPARISON: None available. FINDINGS: INTERNAL CAROTID ARTERIES: The motion degrades the image quality. However, there is no clear evidence of significant focal stenosis involving the visualized distal ICAs. VERTEBROBASILAR SYSTEM: No significant narrowing appreciated. 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 Again, the motion obscures the distal cerebral branches. However, there is no signif icant focal narrowing of the more proximal cerebral arteries. ANEURYSM: None identified. IMPRESSION: The motion degrades image quality. However, there is no clear MRA evidence of significant focal steno sis involving the visualized intracranial vessels. Signer Name: Charles Bowen MD Signed: 10/29/2019 1:32 PM Workstation Name: [id number]
--- NOTE | 2019-10-29 13:38 | Magnetic Resonance Report ---
MR a neck without contrast. CLINICAL HISTORY: Cerebrovascular accident, slurred speech. FINDINGS: No previous exams available for comparison. 2-D [id number] MRA of the neck was performe d. There is no significant stenosis involving the carotid arteries by NASCET criteria. The visualized vertebral arteries also demonstrate appropriate caliber without significant focal narrowing. IMPRESSION: There is no MRA evidence of significant stenosis involving the visualized cervical carotid or vertebr al arteries by NASCET criteria. Signer Name: Charles Bowen MD Signed: 10/29/2019 1:34 PM Workstation Name: [id number]
--- NOTE | 2019-10-29 14:46 | Discharge Summary ---
Providers - Providers Date of Admission: 10/28/19 05:40 Attending physician: JANINE MERCADO MD 10/28/19 Consult to Physician [CONS] Routine Comment: Consulting Provider: GEOFF LOVE Physician Instructions: Reason For Exam: cva 10/28/19 05:40 Occupational Therapy Evaluate and Treat [CONS] Routine Comment: Reason For Exam: Neuro deficits Physical Therapy Evaluation and Treat [CONS] Routine Comment: Reason For Exam: Neuro deficits Primary care physician: LEGAL WRITING PROFESSOR Hospitalization Reason for admission: TIA Condition: Stable Hospital course: 54 -year-old woman with a history of hypertension, diabetes, hyperlipidemia, glaucoma, comes to the room because around 1:00 am she started having left- sided weakness and difficulty speaking. She was evaluated by neurologist in the emergency room, not a candidate for TPA - Reviewed MRI. No evidence infarct. -Discussed further with patient, and she stated that LLE weakness/numbness had been present prior to episode of slurred speech, and had been ongoing since hip surgery. - Given patient's risk factors, it was likely a TIA. - Recommend for patient to continue to take ASA 81mg daily. - Recommend f/u with neurology as outpatient in 3-4 weeks. - Also recommend outpatient f/u with psychiatry, as she states that she is under increased amount of stress lately. TIA Hypertension Diabetes Mellitus Hyperlipidemia Glaucoma Disposition: - TO HOME OR SELFCARE Time spent for discharge: 35 mins Core Measure Documentation - Palliative Care Palliative Care/ Comfort Measures: Not Applicable - Core Measures Any of the following diagnoses?: none Exam - Physical Exam Narrative exam: Gen. appearance: Patient lying in bed, no apparent distress HEENT: Normocephalic, atraumatic, pupils equally round and reactive to light, extraocular movement intact, and no sclericterus,. No JVD or thyromegaly or nodule,neck supple, no carotid bruit ,mucous membranes moist, no exudate or erythema Heart: S1, S2, regular rate and rhythm Lungs: Clear bilaterally, breathing comfortable Abdomen: Positive bowel sounds, non-tender, nondistended, no organomegaly Extremity:no edema cyanosis, clubbing Skin: no rash, dry, warm Neuro: Oriented 3, cranial nerves II-12 intact, dysarthria, left lower extremity 4/5 otherwise hiren - Constitutional Vitals: Temp Pulse Resp BP Pulse Ox 98.5 F 69 18 177/79 95 10/29/19 12:59 10/29/19 12:59 10/29/19 12:59 10/29/19 12:59 10/29/19 12:59 Plan Activity: advance as tolerated, fall precautions Diet: low fat Special Instructions: record daily weights, record daily BP diary Follow up with: PRIMARY CAREMD [Primary Care Provider] - 7 Days ISI WITT MD [Staff Physician] - 7 Days Forms: Work/School Release Form Prescriptions: Rosuvastatin Calcium [Crestor] 20 mg PO QHS #30 tablet Aspirin [Adult Aspirin] 81 mg PO DAILY #30 tablet.
[2019-10-29] MEDS ORDERED: INSULIN GLARGINE 100 UNITS/ML SUB-Q SCH (22:00)
== END 2019-10-29 17:31 | disposition home or self-care (01) ==
LOC: ED 02:48 → SUATTDRO 02:48 → 4A 05:40 → INTOOBSV 05:40
PROVIDERS: ADMIT Internal Medicine; ATTEND Internal Medicine
DX: I63.9 Cerebral infarction, unspecified (principal); I10 Essential (primary) hypertension; E11.9 Type 2 diabetes mellitus without complications; E78.5 Hyperlipidemia, unspecified; H40.9 Unspecified glaucoma; M79.605 Pain in left leg; G47.30 Sleep apnea, unspecified; J45.909 Unspecified asthma, uncomplicated
CPT/HCPCS: 36415; 70450; 70544; 70547; 70551; 80053; 80061; 80307; 81001; 82550; 82553; 82962; 84484; 85025; 85610; 85670; 85730; 90686; 93005; 93010; 93306; 93880; 96372; 96374; 96375; 97163; 97165; 99284; A9270; G0378; J1650; J2270; J2405; 80320; G0480; J1815